=== PATIENT | male | born 1970 | race American Indian/Alaskan Native ===

== ENCOUNTER 2019-03-10 15:23 | Observation (INO) | payer BC ==
[2019-03-10] MEDS ORDERED: ASPIRIN 325 MG TAB PO ONE (15:34)
--- NOTE | 2019-03-10 16:15 | XRay Report ---
CHEST 1 VIEW 03/10/2019 4:05 PM INDICATION / CLINICAL INFORMATION: Chest Pain. COMPARISON: None available. FINDINGS: SUPPORT DEVICES: None. HEART / MEDIASTINUM: No significant abnormality. LUNGS / PLEURA: No significant pulmonary or pleural abnormality. No pneumothorax. ADDITIONAL FINDINGS: No significant additional findings. IMPRESSION: 1. No acute findings. Signer Name: Ulises Lama MD Signed: 03/10/2019 4:10 PM Workstation Name: [id number]
[2019-03-10 17:41] LABS: Basophils # (Auto) 0.1 K/mm3 (0.0-0.1); Basophils % (Auto) 0.8 % (0.0-1.8); Eosinophils # (Auto) 0.2 K/mm3 (0.0-0.4); Eosinophils % (Auto) 1.9 % (0.0-4.3); Hematocrit 43.6 % (35.5-45.6); Hemoglobin 14.7 gm/dl (11.8-15.2); Lymphocytes # (Auto) 1.9 K/mm3 (1.2-5.4); Lymphocytes % (Auto) 20.3 % (13.4-35.0); Mean Corpuscular HGB Conc 34 % (32-34); Mean Corpuscular Volume 90 fl (84-94); Monocytes # (Auto) 0.7 K/mm3 (0.0-0.8); Monocytes % (Auto) 7.8 % (0.0-7.3); Platelet Count 300 K/mm3 (140-440); Red Blood Count 4.87 M/mm3 (3.65-5.03)
[2019-03-10 18:06] LABS: BUN/Creatinine Ratio 10; Blood Urea Nitrogen 10 mg/dL (9-20); Hemolysis Index 29
--- NOTE | 2019-03-10 21:02 | Emergency Department Report ---
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 Patient states the chest pain is radiating to his back. Patient states that he's had a slight cough lately. Patient states his chest pain is worse with cough and better with rest. Patient states chest pain is worse with exertion. Patient states chest pain is a 10 out of 10. Patient complains of shortness of breath and Exertion. Patient Denies Fever and Chills. Patient States His Cough Is Dry. MD Complaint: chest pain -: Sudden Onset: during rest Pain Location: substernal, left chest Pain Radiation: back Severity: severe Severity scale (0 -10): 10 Quality: sharp Consistency: constant Improves With: rest Worsens With: exertion, movement, other re: dyspnea. denies: nausea, vomting, diaphoresis, sense of impending doom Other Symptoms: cough. denies: fever, syncope, rash, acid taste in mouth, leg swelling, palpitations, burping Treatments Prior to Arrival: none Aspirin use within the Past 7 Days: (0) No - Related Data On Oral Contraceptives: No Previous Rx's Medication Instructions Recorded Last Taken Type Azithromycin [Zithromax] 250 mg PO DAILY #5 tablet 03/11/19 Unknown Rx guaiFENesin ER [Mucinex ER] 600 mg PO Q12H #10 tablet.er 03/11/19 Unknown Rx Allergies Allergy/AdvReac Type Severity Reaction Status Date / Time No Known Allergies Allergy Unverified 03/10/19 15:30 Heart Score - HEART Score History: Moderately suspicious EKG: Non-specific Age: 45-65 Risk factors: 1-2 risk factors Troponin: < normal limit HEART Score: 4 ED Review of Systems ROS: Stated complaint: LFT SIDE CHEST PAIN Other details as noted in HPI Constitutional: denies: chills, fever Eyes: denies: eye pain, eye discharge, vision change ENT: denies: ear pain, throat pain Respiratory: cough, shortness of breath. denies: wheezing Cardiovascular: chest pain, dyspnea on exertion. denies: palpitations Endocrine: no symptoms reported Gastrointestinal: denies: abdominal pain, nausea, diarrhea Genitourinary: denies: urgency, dysuria Musculoskeletal: denies: back pain, joint swelling, arthralgia Skin: denies: rash, lesions Neurological: denies: headache, weakness, paresthesias Psychiatric: denies: anxiety, depression Hematological/Lymphatic: denies: easy bleeding, easy bruising ED Past Medical Hx - Past Medical History Previous Medical History?: Yes Hx Hypertension: Yes Additional medical history: Morbid obesity. - Surgical History Past Surgical History?: Yes Additional Surgical History: appendectomy - Family History Family history: no significant - Social History Smoking Status: Never Smoker Substance Use Type: None - Medications Home Medications: Home Medications Medication Instructions Recorded Confirmed Last Taken Type Azithromycin [Zithromax] 250 mg PO DAILY #5 tablet 03/11/19 Unknown Rx guaiFENesin ER [Mucinex ER] 600 mg PO Q12H #10 tablet.er 03/11/19 Unknown Rx ED Physical Exam - General Limitations: No Limitations General appearance: alert, in no apparent distress, obese - Head Head exam: Present: atraumatic, normocephalic - Eye Eye exam: Present: normal appearance - ENT ENT exam: Present: mucous membranes moist - Neck Neck exam: Present: normal inspection - Respiratory Respiratory exam: Present: normal lung sounds bilaterally. Absent: respiratory distress, wheezes, rales - Cardiovascular Cardiovascular Exam: Present: regular rate, normal rhythm. Absent: systolic murmur, diastolic murmur, rubs, gallop - GI/Abdominal GI/Abdominal exam: Present: soft, normal bowel sounds. Absent: distended, tenderness, guarding - Rectal Rectal exam: Present: deferred - Extremities Exam Extremities exam: Present: normal inspection - Back Exam Back exam: Present: normal inspection - Neurological Exam Neurological exam: Present: alert, oriented X3 - Psychiatric Psychiatric exam: Present: normal affect, normal mood - Skin Skin exam: Present: warm, dry, intact, normal color. Absent: rash ED Course Vital Signs 03/10/19 03/10/19 03/10/19 15:31 15:36 20:10 Temperature 98.6 F Pulse Rate 86 86 Respiratory 20 16 18 Rate Blood Pressure 205/120 Blood Pressure 205/120 [Left] O2 Sat by Pulse 97 97 Oximetry 03/10/19 03/10/19 03/11/19 21:03 23:21 00:02 Temperature 98.4 F 98.4 F Pulse Rate 84 86 79 Respiratory 18 18 18 Rate Blood Pressure Blood Pressure 164/78 156/80 156/80 [Left] O2 Sat by Pulse 98 98 98 Oximetry - Reevaluation(s) Reevaluation #1: Discussed all results with patient. Discussed plan of care patient. Patient agrees plan of care and admission. Patient will be admitted to the hospitalist service. 03/10/19 23:13 - Consultations Consultation #1: Hospitalist consult for admission. Hospitalist admit patient. 03/10/19 23:33 MAIK score - Maik Score Age > 65: (0) No Aspirin use within the Past 7 Days: (0) No 3 or more CAD Risk Factors: (0) No 2 or more Angina events in past 24 hrs: (1) Yes Known CAD with more than 50% Stenosis: (0) No Elevated Cardiac Markers: (0) No ST Deviation Greater than 0.5mm: (0) No MAIK Score: 1 ED Medical Decision Making - Lab Data Result diagrams: 03/11/19 05:41 03/11/19 05:41 - EKG Data -: EKG Interpreted by Ne EKG shows normal: sinus rhythm, axis, intervals, QRS complexes, ST-T waves Rate: normal - Radiology Data Radiology results: report reviewed, image reviewed CTA CHEST WITH IV CONTRAST INDICATION / CLINICAL INFORMATION: MAIN: chest pain radiating to back,. 100 ML OMNIPAQUE 350. TECHNIQUE: Axial CT images were obtained through the chest after injection of 100 mL IV contrast. 3 plane MIP and/or 3D reconstructions were produced. All CT scans at this location are performed using CT dose reduction for [facility]ARA by means of automated exposure control. COMPARISON: Chest radiograph, earlier today FINDINGS: PULMONARY ARTERIES: No pulmonary emboli. THORACIC AORTA: No significant abnormality. No evidence of aneurysm or dissection. HEART: No significant abnormality. CORONARY ARTERIES: No significant calcification. PLEURA: No pleural effusion. No pneumothorax. LYMPH NODES: No significant adenopathy. LUNGS: No acute air space or interstitial disease. ADDITIONAL FINDINGS: None. UPPER ABDOMEN: No acute findings. SKELETAL STRUCTURES: Moderate spondylitic changes noted in the thoracic spine. IMPRESSION: 1. No CT evidence for pulmonary embolism. 2. No acute findings. CHEST 1 VIEW 03/10/2019 4:05 PM INDICATION / CLINICAL INFORMATION: Chest Pain. COMPARISON: None available. FINDINGS: SUPPORT DEVICES: None. HEART / MEDIASTINUM: No significant abnormality. LUNGS / PLEURA: No significant pulmonary or pleural abnormality. No pneumothorax. ADDITIONAL FINDINGS: No significant additional findings. IMPRESSION: 1. No acute findings. - Medical Decision Making Patient is a 48-year-old male that presents emergency room with complaints of chest pain and cough. Due to patient's risk factors patient will be admitted to the hospitalist service to rule out ACS. Patient's chest x-ray and CTA were negative. Patient's labs unremarkable. Patient's initial finding was a severely elevated blood pressure consistent with hypertensive emergency. Patient's blood pressure auto-corrected. Patient admitted to the hospitalist service. - Differential Diagnosis cp. acs. htn urgency/emerg, cough. pna. pe. dissection Critical Care Time: Yes Critical care time in (mins) excluding proc time.: 35 Critical care attestation.: If time is entered above; I have spent that time in minutes in the direct care of this critically ill patient, excluding procedure time. Critical Care Time: 35 MINUTES ED Disposition Clinical Impression: Hypertensive emergency without congestive heart failure, SOB (shortness of breath), AGARWAL (dyspnea on exertion) Chest pain Qualifiers: Chest pain type: unspecified Qualified Code(s): R07.9 - Chest pain, unspecified Disposition: DC-09 OP ADMIT IP TO THIS HOSP Is pt being admited?: Yes Does the pt Need Aspirin: No Condition: Stable Time of Disposition: 23:25
[2019-03-10] MEDS ORDERED: ASPIRIN 325 MG TAB ONE (21:10)
--- NOTE | 2019-03-10 22:04 | Cat Scan Report ---
CTA CHEST WITH IV CONTRAST INDICATION / CLINICAL INFORMATION: MAIN: chest pain radiating to back,. 100 ML OMNIPAQUE 350. TECHNIQUE: Axial CT images were obtained through the chest after injection of 100 mL IV contrast. 3 plane MIP an d/or 3D reconstructions were produced. All CT scans at this location are performed using CT dose redu ction for [facility] by means of automated exposure control. COMPARISON: Chest radiograph, earlier today FINDINGS: PULMONARY ARTERIES: No pulmonary emboli. THORACIC AORTA: No significant abnormality. No evidence of aneurysm or dissection. HEART: No significant abnormality. CORONARY ARTERIES: No significant calcification. PLEURA: No pleural effusion. No pneumothorax. LYMPH NODES: No significant adenopathy. LUNGS: No acute air space or interstitial disease. ADDITIONAL FINDINGS: None. UPPER ABDOMEN: No acute findings. SKELETAL STRUCTURES: Moderate spondylitic changes noted in the thoracic spine. IMPRESSION: 1. No CT evidence for pulmonary embolism. 2. No acute findings. Signer Name: Lindy Osborn MD Signed: 03/10/2019 9:59 PM Workstation Name: [id number]
[2019-03-10] MEDS ORDERED: MORPHINE 2 MG/1 ML INJ IV PRN (23:30)
[2019-03-10] MEDS ORDERED: MAGNESIUM HYDROXIDE (MOM) ORAL LIQD UDC PO PRN (23:30)
[2019-03-10] MEDS ORDERED: ONDANSETRON 4 MG/2 ML INJ IV PRN (23:30)
[2019-03-10] MEDS ORDERED: NITROGLYCERIN 0.4 MG TAB SUBL SL PRN (23:30)
--- NOTE | 2019-03-10 23:45 | History and Physical Report ---
History of Present Illness Date of examination: 03/10/19 Date of admission: 03/10/19 Chief complaint: Chest pain History of present illness: 48 year old -Mal[place]ian male with known history of hypertension presented to the emergency room today complaining of chest pain. Chest pain is said to be radiating towards the back. He has had associated cough which is nonproductive. He denies any fever or chills, no nausea vomiting, no headache or dizziness. On a scale of 10 pain was said to be 10 over 10. Pain is said to be worse when he coughs and also on exertion. Workup in the emergency room included a CT angiogram has been unremarkable. Past History Past Medical History: hypertension Past Surgical History: bowel surgery Social history: no significant social history Family history: other (heart disease in grandfather) Medications and Allergies Allergies Allergy/AdvReac Type Severity Reaction Status Date / Time No Known Allergies Allergy Unverified 03/10/19 15:30 Active Meds: Active Medications Acetaminophen (Tylenol) 650 mg PO Q4H PRN PRN Reason: Pain MILD(1-3)/Fever >100.5/MORGAN Aspirin (Ecotrin) 325 mg PO QDAY KIKE Heparin Sodium (Porcine) (Heparin) 5,000 unit SUB-Q Q8HR KIKE Magnesium Hydroxide (Milk Of Magnesia) 30 ml PO Q4H PRN PRN Reason: Constipation Morphine Sulfate (Morphine) 2 mg IV Q5MIN PRN PRN Reason: Chest Pain unrelieved by NTG Nitroglycerin (Nitrostat) 0.4 mg SL Q5M PRN PRN Reason: Chest Pain Ondansetron HCl (Zofran) 4 mg IV Q8H PRN PRN Reason: Nausea And Vomiting Sodium Chloride (Sodium Chloride Flush Syringe 10 Ml) 10 ml IV BID KIKE Sodium Chloride (Sodium Chloride Flush Syringe 10 Ml) 10 ml IV PRN PRN PRN Reason: LINE FLUSH Sodium Chloride (Sodium Chloride Flush Syringe 10 Ml) 10 ml IV PRN PRN PRN Reason: LINE FLUSH Review of Systems Cardiovascular: chest pain Respiratory: cough Exam - Constitutional Vitals: Temp Pulse Resp BP Pulse Ox 98.4 F 86 18 156/80 98 03/10/19 23:21 03/10/19 23:21 03/10/19 23:21 03/10/19 23:21 03/10/19 23:21 General appearance: Present: no acute distress, well-nourished, obese - EENT Eyes: Present: PERRL, EOM intact ENT: hearing intact, clear oral mucosa, dentition normal - Neck Neck: Present: supple, normal ROM - Respiratory Respiratory effort: normal Respiratory: bilateral: CTA - Cardiovascular Rhythm: regular Heart Sounds: Present: S1 & S2 - Extremities Extremities: no ischemia, pulses intact, pulses symmetrical, No edema, Full ROM Peripheral Pulses: within normal limits - Abdominal General gastrointestinal: Present: soft, non-tender, non-distended - Integumentary Integumentary: Present: clear, warm, dry - Musculoskeletal Musculoskeletal: strength equal bilaterally - Psychiatric Psychiatric: appropriate mood/affect, intact judgment & insight, cooperative - Neurologic Neurologic: CNII-XII intact, moves all extremities Results - Labs CBC & Chem 7: 03/11/19 00:30 03/10/19 23:47 Labs: Abnormal lab results 03/10/19 03/10/19 Range/Units 16:22 16:22 Bertie % (Auto) 7.8 H (0.0-7.3) % Sodium 134 L (137-145) mmol/L Chloride 96.1 L (98-107) mmol/L Glucose 101 H (75-100) mg/dL Assessment and Plan - Patient Problems (1) Chest pain Current Visit: Yes Status: Acute Qualifiers: Chest pain type: unspecified Qualified Code(s): R07.9 - Chest pain, unspecified Plan to address problem: He has been admitted to telemetry, will monitor cardiac enzymes. Patient placed on sublingual nitroglycerin, IV morphine as needed for pain. Will request cardiology evaluation and recommendation. (2) Hypertension Current Visit: Yes Status: Acute Plan to address problem: We'll continue routine home medications once her course. Monitor vital signs closely.. (3) DVT prophylaxis Current Visit: Yes Status: Acute Plan to address problem: Patient placed on subcutaneous heparin (4) Full code status Current Visit: Yes Status: Acute
[2019-03-11 00:44] LABS: BUN/Creatinine Ratio 11; Blood Urea Nitrogen 11 mg/dL (9-20); Calcium 9.3 mg/dL (8.4-10.2); Hemolysis Index 21
[2019-03-11 00:47] LABS: Basophils # (Auto) 0.1 K/mm3 (0.0-0.1); Basophils % (Auto) 0.8 % (0.0-1.8); Eosinophils # (Auto) 0.1 K/mm3 (0.0-0.4); Hematocrit 43.3 % (35.5-45.6); Hemoglobin 14.6 gm/dl (11.8-15.2); Lymphocytes % (Auto) 20.7 % (13.4-35.0); Mean Corpuscular HGB Conc 34 % (32-34); Mean Corpuscular Volume 88 fl (84-94); Monocytes # (Auto) 0.8 K/mm3 (0.0-0.8); Monocytes % (Auto) 8.1 % (0.0-7.3); Platelet Count 275 K/mm3 (140-440); Red Cell Distribution Width 13.7 % (13.2-15.2)
[2019-03-11] MEDS: guaiFENesin 100 MG/5 ML ORAL LIQD PO PRN ×4 (01:22→13:23)
[2019-03-11] MEDS: ACETAMINOPHEN 325 MG TAB PO PRN ×2 (02:39→08:59)
[2019-03-11] MEDS ORDERED: HYDROmorphone 1 MG/1 ML INJ IV ONE (04:12)
[2019-03-11] MEDS: HEPARIN 5,000 UNIT/1 ML VIAL SUB-Q SCH ×2 (05:47→15:34)
[2019-03-11 07:58] LABS: Basophils % (Auto) 0.4 % (0.0-1.8); Eosinophils # (Auto) 0.1 K/mm3 (0.0-0.4); Eosinophils % (Auto) 0.6 % (0.0-4.3); Lymphocytes # (Auto) 1.2 K/mm3 (1.2-5.4); Lymphocytes % (Auto) 13.6 % (13.4-35.0); Mean Corpuscular HGB Conc 33 % (32-34); Mean Corpuscular Volume 89 fl (84-94); Monocytes # (Auto) 0.6 K/mm3 (0.0-0.8); Monocytes % (Auto) 7.3 % (0.0-7.3); Platelet Count 276 K/mm3 (140-440); Red Blood Count 4.74 M/mm3 (3.65-5.03); Red Cell Distribution Width 13.5 % (13.2-15.2)
[2019-03-11 08:08] LABS: INR 1.04 (0.87-1.13)
[2019-03-11 08:09] LABS: Partial Thromboplastin Time 28.4 Sec. (24.2-36.6)
[2019-03-11 08:27] LABS: BUN/Creatinine Ratio 11; Blood Urea Nitrogen 9 mg/dL (9-20); Calcium 8.9 mg/dL (8.4-10.2); Chol/HDL Ratio 2.95 %; HDL Cholesterol 61 mg/dL (40-59); Hemolysis Index 15; LDL Cholesterol,Direct 113 mg/dL (50-130)
--- NOTE | 2019-03-11 09:58 | Consultation ---
History of Present Illness Consult date: 03/11/19 Consult reason: chest pain History of present illness: 48 year old obese -[place] male presenting with left flank pain and left sided precordial chest pain. Patient states he has had a cough and felt he was cough had been violent at times and alleged caused his chest pain. Pain appears to be aggravated when he coughs. Past History Past Medical History: hypertension Past Surgical History: bowel surgery Social history: no significant social history Family history: other (heart disease in grandfather) Medications and Allergies Allergies Allergy/AdvReac Type Severity Reaction Status Date / Time No Known Allergies Allergy Unverified 03/10/19 15:30 Active Meds: Active Medications Acetaminophen (Tylenol) 650 mg PO Q4H PRN PRN Reason: Pain MILD(1-3)/Fever >100.5/MORGAN Last Admin: 03/11/19 08:59 Dose: 650 mg Documented by: Aspirin (Ecotrin) 325 mg PO QDAY [facility] Last Admin: 03/11/19 08:59 Dose: 325 mg Documented by: Guaifenesin (Robitussin) 200 mg PO Q4H PRN PRN Reason: Cough Last Admin: 03/11/19 09:00 Dose: 200 mg Documented by: Heparin Sodium (Porcine) (Heparin) 5,000 unit SUB-Q Q8HR [facility] Last Admin: 03/11/19 05:47 Dose: 5,000 unit Documented by: Magnesium Hydroxide (Milk Of Magnesia) 30 ml PO Q4H PRN PRN Reason: Constipation Last Admin: 03/11/19 09:00 Dose: 30 ml Documented by: Morphine Sulfate (Morphine) 2 mg IV Q5MIN PRN PRN Reason: Chest Pain unrelieved by NTG Last Admin: 03/11/19 01:22 Dose: 2 mg Documented by: Nitroglycerin (Nitrostat) 0.4 mg SL Q5M PRN PRN Reason: Chest Pain Ondansetron HCl (Zofran) 4 mg IV Q8H PRN PRN Reason: Nausea And Vomiting Sodium Chloride (Sodium Chloride Flush Syringe 10 Ml) 10 ml IV BID [facility] Sodium Chloride (Sodium Chloride Flush Syringe 10 Ml) 10 ml IV PRN PRN PRN Reason: LINE FLUSH Sodium Chloride (Sodium Chloride Flush Syringe 10 Ml) 10 ml IV PRN PRN PRN Reason: LINE FLUSH Review of Systems All systems: negative Cardiovascular: chest pain Respiratory: cough Physical Examination Vital Signs Temp Pulse Resp BP Pulse Ox 98.6 F 86 20 205/120 97 03/10/19 15:31 03/10/19 15:31 03/10/19 15:31 03/10/19 15:31 03/10/19 15:31 General appearance: no acute distress, obese HEENT: Positive: PERRL, Mucus Membranes Moist Neck: Positive: neck supple, trachea midline Cardiac: Positive: Reg Rate and Rhythm, S1/S2. Negative: Audible Murmur Lungs: Positive: clear to auscultation, Normal Breath Sounds Neuro: Positive: Grossly Intact Abdomen: Positive: Soft, Active Bowel Sounds. Negative: Tender, Distended Male genitourinary: Positive: normal Skin: Positive: Clear Incision: Cardiac Cath Site Musculoskeletal: No Pain, Normal Range of Motion Extremities: Present: normal. Absent: edema Results 03/11/19 05:41 03/11/19 05:41 Coagulation 03/11/19 Range/Units 05:41 PT 13.7 (12.2-14.9) Sec. INR 1.04 (0.87-1.13) APTT 28.4 (24.2-36.6) Sec. Lipids 03/11/19 Range/Units 05:41 Triglycerides 71 (2-149) mg/dL Cholesterol 180 (50-199) mg/dL HDL Cholesterol 61 H (40-59) mg/dL Cholesterol/HDL Ratio 2.95 % CBC 03/10/19 03/11/19 03/11/19 Range/Units 16:22 00:30 05:41 WBC 9.2 9.9 8.6 (4.5-11.0) K/mm3 RBC 4.87 4.90 4.74 (3.65-5.03) M/mm3 Hgb 14.7 14.6 14.0 (11.8-15.2) gm/dl Hct 43.6 43.3 42.0 (35.5-45.6) % Plt Count 300 275 276 (140-440) K/mm3 Lymph # 1.9 2.0 1.2 (1.2-5.4) K/mm3 Mccreary # 0.7 0.8 0.6 (0.0-0.8) K/mm3 Eos # 0.2 0.1 0.1 (0.0-0.4) K/mm3 Baso # 0.1 0.1 0.0 (0.0-0.1) K/mm3 Comprehensive Metabolic Panel 03/10/19 03/10/19 03/11/19 Range/Units 16:22 23:47 05:41 Sodium 134 L 134 L 138 (137-145) mmol/L Potassium 3.9 3.8 3.8 (3.6-5.0) mmol/L Chloride 96.1 L 95.2 L 97.7 L (98-107) mmol/L Carbon Dioxide 25 22 21 L (22-30) mmol/L BUN 10 11 9 (9-20) mg/dL Creatinine 1.0 1.0 0.8 (0.8-1.5) mg/dL Glucose 101 H 79 102 H (75-100) mg/dL Calcium 9.0 9.3 8.9 (8.4-10.2) mg/dL EKG interpretations - Telemetry EKG Rhythm: Sinus Rhythm Assessment and Plan 1. Noncardiac chest pain likely musculoskeletal in origin precipitated by coughing 2. Acute bronchitis 3. Essential hypertension 4. Severe obesity EKG shows sinus rhythm, left axis. And is within normal limits. Serum troponin levels are normal. Chest x-ray shows no acute cardiopulmonary process and CTA of the chest negative for pulmonary embolus Plan. Cardiac-bagley stable.
[2019-03-11] MEDS ORDERED: ASPIRIN EC 325 MG TAB PO SCH (10:00)
[2019-03-11 12:25] VITALS: BP 176/95
--- NOTE | 2019-03-11 14:35 | Discharge Summary ---
Providers - Providers Date of Admission: 03/10/19 23:30 Date of discharge: 03/11/19 Attending physician: DAYDAY DUNHAM 03/10/19 Consult to Cardiac Rehabilitation [CONS] Routine Reason For Exam: Phase I 03/10/19 23:30 Consult to Physician [CONS] Routine Comment: Consulting Provider: PRATIMA GARNER Physician Instructions: Reason For Exam: CHEST PAIN Primary care physician: DEJA VELÁZQUEZ Hospitalization Condition: Critical Hospital course: EKG shows sinus rhythm, left axis. And is within normal limits. Serum troponin levels are normal. Chest x-ray shows no acute cardiopulmonary process and CTA of the chest negative for pulmonary embolus Discharge diagnosis: 1. Noncardiac chest pain likely musculoskeletal in origin precipitated by coughing 2. Acute bronchitis 3. Essential hypertension 4. Severe Morbid obesity Disposition: DC- TO HOME OR SELFCARE Time spent for discharge: 34 minutes Core Measure Documentation - Palliative Care Palliative Care/ Comfort Measures: Not Applicable - Core Measures Any of the following diagnoses?: none Exam - Constitutional Vitals: Temp Pulse Resp BP Pulse Ox 98.7 F 85 20 176/95 96 03/11/19 12:05 03/11/19 12:05 03/11/19 12:05 03/11/19 12:05 03/11/19 12:05 General appearance: Present: no acute distress, well-nourished, obese - EENT Eyes: Present: PERRL ENT: hearing intact, clear oral mucosa - Neck Neck: Present: supple, normal ROM - Respiratory Respiratory effort: normal Respiratory: bilateral: CTA - Cardiovascular Heart Sounds: Present: S1 & S2. Absent: rub, click - Extremities Extremities: pulses symmetrical, No edema Peripheral Pulses: within normal limits - Abdominal General gastrointestinal: Present: soft, non-tender, non-distended, normal bowel sounds - Integumentary Integumentary: Present: clear, warm, dry - Musculoskeletal Musculoskeletal: gait normal, strength equal bilaterally - Psychiatric Psychiatric: appropriate mood/affect, intact judgment & insight - Neurologic Neurologic: CNII-XII intact, moves all extremities Plan Activity: advance as tolerated Weight Bearing Status: Weight Bear as Tolerated Diet: low fat, low salt Prescriptions: guaiFENesin ER [Mucinex ER] 600 mg PO Q12H #10 tablet.er Azithromycin [Zithromax] 250 mg PO DAILY #5 tablet
== END 2019-03-11 20:04 | disposition home or self-care (01) ==
LOC: ED 15:23 → 4A 23:30
PROVIDERS: ADMIT Internal Medicine Geriatric Medicine; ATTEND Internal Medicine
DX: R07.89 Other chest pain (principal); I16.0 Hypertensive urgency; I10 Essential (primary) hypertension; R06.00 Dyspnea, unspecified; Z98.890 Other specified postprocedural states; Z79.82 Long term (current) use of aspirin; E66.01 Morbid (severe) obesity due to excess calories; Z68.43 Body mass index [BMI] 50.0-59.9, adult; Z90.49 Acquired absence of other specified parts of digestive tract
CPT/HCPCS: 36415; 71045; 71275; 80048; 80061; 84484; 85025; 85610; 85730; 93005; 93010; 93306; 96372; 96374; 96375; 99291; G0378; J1170; J1644; J2270; Q9967

== ENCOUNTER 2019-09-09 20:00 | Emergency (ER) | payer SELFPAY ==
[2019-09-09 20:11] VITALS: BP 206/112
--- NOTE | 2019-09-09 20:43 | XRay Report ---
Right hand-3 views INDICATION: dog bite with multiple lacerations. COMPARISON: None. IMPRESSION: There is soft tissue swelling and irregularity most notably along the ulnar and dorsal a spects of the hand. No radiopaque foreign body or subcutaneous gas identified. No acute fracture. No significant DJD. Signer Name: Maximiliano Zamora MD Signed: 09/09/2019 8:38 PM Workstation Name: [id number]
[2019-09-09] MEDS ORDERED: SODIUM CHLORIDE 0.9% IRR 500 ML BOTTLE IR ONE (23:45)
[2019-09-09] MEDS ORDERED: DIPHtheria,PERTUSSIS(ACELL),TETANUS VACCINE/PF 0.5 ML VIAL IM ONE (23:46)
--- NOTE | 2019-09-09 23:55 | Emergency Department Report ---
ED General Adult HPI - General Chief complaint: Wound/Laceration Stated complaint: HAND LAC Time Seen by Provider: 09/09/19 23:40 Source: patient Mode of arrival: Ambulatory Limitations: No Limitations - History of Present Illness Initial comments: 49-year-old -[place] male patient presents with complaints of multiple dog bites to his right hand x [employer]. Patient states he does on the dog was bitten when he was attempting to stop his dog from chasing a cat. Patient reports the dog is up-to-date on his shots patient is unsure of his last tetanus vaccination. He rates his current pain as a 4/10 in severity. - Related Data Previous Rx's Medication Instructions Recorded Last Taken Type Azithromycin [Zithromax] 250 mg PO DAILY #5 tablet 03/11/19 Unknown Rx guaiFENesin ER [Mucinex ER] 600 mg PO Q12H #10 tablet.er 03/11/19 Unknown Rx Allergies Allergy/AdvReac Type Severity Reaction Status Date / Time No Known Allergies Allergy Unverified 03/10/19 15:30 ED Review of Systems ROS: Stated complaint: HAND LAC Other details as noted in HPI Skin: other (Multiple wounds to right hand) Neurological: denies: weakness, numbness, paresthesias ED Past Medical Hx - Past Medical History Previous Medical History?: Yes Hx Hypertension: Yes Hx Congestive Heart Failure: No Hx Diabetes: No Hx Asthma: No Hx COPD: No Additional medical history: Morbid obesity. - Surgical History Hx Appendectomy: Yes Additional Surgical History: appendectomy - Social History Smoking Status: Never Smoker Substance Use Type: None - Medications Home Medications: Home Medications Medication Instructions Recorded Confirmed Last Taken Type Azithromycin [Zithromax] 250 mg PO DAILY #5 tablet 03/11/19 Unknown Rx guaiFENesin ER [Mucinex ER] 600 mg PO Q12H #10 tablet.er 03/11/19 Unknown Rx ED Physical Exam - General Limitations: No Limitations General appearance: alert, in no apparent distress - Head Head exam: Present: atraumatic, normocephalic - Eye Eye exam: Present: normal appearance. Absent: scleral icterus - Respiratory Respiratory exam: Absent: respiratory distress - Cardiovascular Cardiovascular Exam: Present: regular rate - Neurological Exam Neurological exam: Present: alert, oriented X3 - Psychiatric Psychiatric exam: Present: normal affect, normal mood - Skin Skin exam: Present: warm, dry, normal color. Absent: intact (Multiple small puncture wounds noted to dorsal aspect of right wrist and hand, small laceration noted to palmar aspect of right hand beneath fifth digit, approximately 6 cm gaping laceration noted extending from the lateral to the medial lower portion of the right palm with mild active bleeding), rash ED Course Vital Signs 09/09/19 20:06 Temperature 98.5 F Pulse Rate 79 Respiratory 16 Rate Blood Pressure 206/112 O2 Sat by Pulse 97 Oximetry ED Medical Decision Making - Radiology Data Radiology results: report reviewed Right hand-3 views INDICATION: dog bite with multiple lacerations. COMPARISON: None. IMPRESSION: There is soft tissue swelling and irregularity most notably along the ulnar and dorsal aspects of the hand. No radiopaque foreign body or subcutaneous gas identified. No acute fracture. No significant DJD. - Medical Decision Making Patient here with multiple dog bite wounds to the right hand with a singular gaping 6 cm wound noted to the palm of the right hand. X-ray is negative for fractures or gas. discussed patient with Dr. Armstrong who recommended consult with [facility]. [facility] who spoke with Dr. Kessler, hand surgery-advised patient be transferred to [facility] for further evaluation. Discussed importance of patient seeing the hand surgeon and risk of complication of severe infection and possible limb loss with patient . Patient declines ER to ER transfer via ambulance and states he would like to have his drive him to [facility]. Patient states he will sign out AMA. Wound was soaked in Betadine and saline. Tetanus vaccination ordered. Patient states he will proceed immediately to [facility] emergency department and that he understands the severity of his condition. Critical care attestation.: If time is entered above; I have spent that time in minutes in the direct care of this critically ill patient, excluding procedure time. ED Disposition Clinical Impression: Open wound of right hand due to dog bite, Uncontrolled hypertension Disposition: - LEFT AGAINST MED ADVICE Is pt being admited?: No Condition: Stable Instructions: Animal Bite (ED), Hypertension (ED) Additional Instructions: Please proceed immediately to [facility] for further evaluation and treatment. The hand surgeon information strategist that is to see you his name Dr. Kessler. You are at high risk of infection and it is very important that you proceed immediately to [facility]'s emergency department. Referrals: PRIMARY CARE, [Primary Care Provider] - 3-5 Days Forms: AMA Form
[2019-09-10] MEDS ORDERED: HYDROcodone/ACETAMINOPHEN 10-325MG TAB PO ONE (00:01)
== END 2019-09-10 00:25 | disposition left against medical advice (07) ==
LOC: ED 20:00
DX: S61.451A Open bite of right hand, initial encounter (principal); I10 Essential (primary) hypertension; Z90.49 Acquired absence of other specified parts of digestive tract; Z79.2 Long term (current) use of antibiotics; Z79.899 Other long term (current) drug therapy; W54.0XXA Bitten by dog, initial encounter; Y93.89 Activity, other specified; Y92.89 Other specified places as the place of occurrence of the external cause; Y99.8 Other external cause status